=== PATIENT | female | born 1985 | race Two or more races ===

== ENCOUNTER 2025-07-19 10:51 | Outpatient (CLI) | payer MEDICAID ==
[2025-07-19 11:10] LABS: Hematocrit 40.1 % (36.0-46.0); Hemoglobin 13.7 g/dL (12.2-16.2); Mean Corpuscular Hemoglobin 29.9 pg (28.0-32.0); Mean Corpuscular Volume 87.8 fL (80.0-100.0); Nucleated Red Blood Cells % 0.0 %
[2025-07-19 11:57] LABS: Follicle Stimulating Hormone 7.11 IU/L (SEE BELOW)
== END 2025-07-19 17:00 | disposition home or self-care (01) ==
LOC: LAB 10:51
PROVIDERS: ATTEND Obstetrics & Gynecology
DX: N95.1 Menopausal and female climacteric states (principal)
CPT/HCPCS: 36415; 82670; 83001; 83002; 84403; 84443; 85025